=== PATIENT | male | born 1990 | race Caucasian/White ===

== ENCOUNTER → 2017-12-31 | Outpatient (CLI) | payer BC ==
--- NOTE | 2018-01-01 00:54 | MR ---
EXAMINATION TYPE: MR shoulder LT wo con DATE OF EXAM: 12/31/2017 COMPARISON: NONE HISTORY: Left Shoulder pain with Limited ROM X4-6 months TECHNIQUE: Multiplanar, multisequence imaging of the left shoulder is performed without contrast. FINDINGS: Biceps tendon is intact. Subscapularis tendon is intact. Glenoid delores appear intact. There is very mild increased signal in the supraspinatus tendon near the subacromial joint space. The re is no retraction. I see no bony destructive process. AC joint is intact. There is no subacromial i mpingement. IMPRESSION: Minimal signal changes in the supraspinatus tendon consistent with mild tendinitis. No evidence of fu ll-thickness rotator cuff tear. No fracture. No subacromial impingement..
== END | disposition home or self-care (01) ==
LOC: RADMRIMAIN 15:45
PROVIDERS: ATTEND Family Medicine
DX: M25.812 Other specified joint disorders, left shoulder (principal)

== ENCOUNTER → 2018-08-06 | Outpatient (CLI) | payer BC ==
[2018-08-06 11:56] LABS: Basophils % (A) 0 %; Eosinophils # (A) 0.2 k/uL (0-0.7); Eosinophils % (A) 3 %; HCT 45.4 % (39.0-53.0); HGB 15.3 gm/dL (13.0-17.5); Lymphocytes # (A) 1.2 k/uL (1.0-4.8); Lymphocytes % (A) 25 %; MCH 28.8 pg (25.0-35.0); MCHC 33.6 g/dL (31.0-37.0); MCV 85.8 fL (80.0-100.0); Mean Platelet Volume 6.5; Monocytes # (A) 0.2 k/uL (0-1.0); Monocytes % (A) 4 %; Neutrophils # (A) 3.3 k/uL (1.3-7.7); Neutrophils % (A) 66 %; Platelet Count 221 k/uL (150-450); RDW 12.3 % (11.5-15.5)
[2018-08-06 11:57] LABS: ALT 34 U/L (21-72); AST 20 U/L (17-59); Albumin 4.3 g/dL (3.5-5.0); Alkaline Phosphatase 63 U/L (38-126); Anion Gap 6 mmol/L; Blood Urea Nitrogen 15 mg/dL (9-20); C Reactive Protein <5.0 mg/L (<10.0); Calcium 9.6 mg/dL (8.4-10.2); Carbon Dioxide 31 mmol/L (22-30); Chloride 104 mmol/L (98-107); Glucose 92 mg/dL (74-99); Potassium 4.8 mmol/L (3.5-5.1); Sodium 141 mmol/L (137-145); Total Bilirubin 0.5 mg/dL (0.2-1.3)
[2018-08-06 18:21] LABS: Helicobacter pylori IgG Abs <0.40 U/mL
== END | disposition home or self-care (01) ==
LOC: LABWHC1 10:13
PROVIDERS: ATTEND Internal Medicine
DX: K21.9 Gastro-esophageal reflux disease without esophagitis (principal); K62.5 Hemorrhage of anus and rectum; R19.7 Diarrhea, unspecified; K64.9 Unspecified hemorrhoids
CPT/HCPCS: 36415; 80053; 82784; 83516; 85025; 86140; 86255; 86677

== ENCOUNTER → 2022-01-17 | Outpatient (CLI) | payer MEDICAID ==
--- NOTE | 2022-01-18 04:01 | CT ---
EXAMINATION TYPE: CT abdomen pelvis wo con DATE OF EXAM: 01/17/2022 COMPARISON: None HISTORY: LLQ pain, diverticulosis CT DLP: 432 mGycm Automated exposure control for dose reduction was used. Images obtained from the diaphragm to the floor the pelvis with oral contrast only. FINDINGS: The lung bases are clear. There is no pleural effusion. Heart size is normal. There is no pericardial effusion. Liver spleen and stomach pancreas and gallbladder appear intact. Bile ducts are not dilated. There is no adrenal mass. Kidneys have normal size. There is no hydronephrosis. Ureters are not dilat ed. There is no retroperitoneal adenopathy. Bladder distends smoothly. There is no inguinal hernia. T here is no free fluid in the pelvis. Appendix not clearly seen. No sign of thickened appendix. There is normal contrast opacification of the small bowel. There is no ascites or free air. There is no mesenteric edema. There is no evidence of bowel obstruction. Large bowel pattern is fairly normal. No evidence of any significant diverticular disease. There is retained fecal material in the rectum. Lumbar vertebrae have normal alignment. Posterior elements are intact. Bony pelvis is intact. The hip joints are intact. IMPRESSION: Retained rectal fecal material. No evidence of any significant diverticular disease.
== END | disposition home or self-care (01) ==
LOC: RADCTMAIN 17:35
PROVIDERS: ATTEND Family Medicine
DX: K56.41 Fecal impaction (principal)
CPT/HCPCS: 74176